=== PATIENT | female | born 1995 | race Caucasian/White ===

== ENCOUNTER 2018-08-01 18:11 | Inpatient (IN) | payer BC ==
[2018-08-01] MEDS ORDERED: Nalbuphine 10 MG/1 ML Vial IVPUSH PRN (20:06)
[2018-08-01] MEDS ORDERED: Sodium Chloride 0.9% 10 ML Syringe FLUSH PRN (20:06)
[2018-08-01] MEDS ORDERED: Sodium Chloride 0.9% 2.5 ML Syringe FLUSH PRN (20:06)
[2018-08-01] MEDS ORDERED: Water For Irrigation,Sterile 1,000 ML Container IRR PRN (20:06)
[2018-08-01] MEDS ORDERED: Misoprostol 200 MCG Tab PO PRN (20:06)
[2018-08-01] MEDS ORDERED: Tranexamic Acid 1,000 MG in Sodium Chloride 0.9% 100 ML IV PRN (20:06)
[2018-08-01] MEDS ORDERED: Butorphanol 1 MG/ML SDV IVPUSH PRN (20:06)
[2018-08-01] MEDS ORDERED: Methylergonovine 0.2 MG/1 ML Amp IM PRN (20:06)
[2018-08-01] MEDS ORDERED: Lidocaine 1% 50 ML MDV INJECT PRN (20:06)
[2018-08-01] MEDS ORDERED: Carboprost Tromethamine 250 MCG/1 ML Amp IM PRN (20:06)
[2018-08-01] MEDS ORDERED: Oxytocin/0.9 % Sodium Chloride 30 UNIT/500 ML BAG IV SCH (20:15)
[2018-08-01] MEDS ORDERED: Ampicillin 2 GM in Sodium Chloride 0.9% 100 ML IV ONE (20:30)
[2018-08-01] MEDS: Lactated Ringers 1,000 ML IV SCH (20:41)
[2018-08-02] MEDS: Ampicillin 1 GM in Sodium Chloride 0.9% 50 ML IV SCH ×2 (00:27→04:40)
[2018-08-02] MEDS: Lactated Ringers 1,000 ML IV SCH ×2 (06:08→06:34)
--- NOTE | 2018-08-02 06:08 | PCM.LDHP ---
L&D History of Present Illness - General Date of Service: 08/02/18 Admit Problem/Dx: Patient Status Order with Admit Dx/Problem 08/01/18 18:10 Patient Status [ADT] Routine 08/01/18 19:51 Patient Status [ADT] Routine Admission Diagnosis/Problem Admission Diagnosis/Problem Source of Information: Patient History Limitations: Reports: No Limitations - History of Present Illness Improves with: Reports: None Worsens with: Reports: None Associated Symptoms: Reports: N - Related Data Allergies/Adverse Reactions: Allergies Allergy/AdvReac Type Severity Reaction Status Date / Time gluten Allergy Rash Verified 08/01/18 19:06 almonds Allergy Rash Uncoded 08/01/18 19:06 cherries Allergy Rash Uncoded 08/01/18 19:06 nuts Allergy Rash Uncoded 08/01/18 19:06 peaches Allergy Rash Uncoded 08/01/18 19:06 strawberries Allergy Rash Uncoded 08/01/18 19:06 Past Medical History - Past Health History Medical/Surgical History: Denies 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: Social & Family History - Family History Family Medical History: Noncontributory - Tobacco Use Smoking Status *Q: Never Smoker Second Hand Smoke Exposure: No - Caffeine Use Caffeine Use: Reports: None - Recreational Drug Use Recreational Drug Use: No H&P Review of Systems - Review of Systems: Review Of Systems: See Below General: Reports: No Symptoms HEENT: Reports: No Symptoms Pulmonary: Reports: No Symptoms Cardiovascular: Reports: No Symptoms Gastrointestinal: Reports: No Symptoms Genitourinary: Reports: No Symptoms Musculoskeletal: Reports: No Symptoms Skin: Reports: No Symptoms Psychiatric: Reports: No Symptoms Neurological: Reports: No Symptoms Hematologic/Lymphatic: Reports: No Symptoms Immunologic: Reports: No Symptoms L&D Exam - Exam Exam: See Below - Vital Signs Weight: 86.183 kg - OB Specific Fundal Height In cm: 38 Contraction Intensity: Mild to Moderate Movement: Active Heart Tones: Present Presentation: Breech - Cheema Score Cheema Score Cervix Position: Midposition Cheema Score Consistency: Soft Cheema Score Effacement: 51-70% Cheema Score Dilation: 1-2 cm Cheema Score Infant's Station: -3 Cheema Score Total: 6 - Exam General: Alert, Oriented HEENT: PERRLA, Conjunctiva Clear, EACs Clear, EOMI, Hearing Intact, Mucosa Moist & [place], Nares Patent, Normal Nasal Septum, Posterior Pharynx Clear, TMs Clear Neck: Supple, Trachea Midline Lungs: Clear to Auscultation, Normal Respiratory Effort Cardiovascular: Regular Rate, Regular Rhythm GI/Abdominal Exam: Normal Bowel Sounds, Soft, Non-Tender, No Organomegaly, No Distention, No Abnormal Bruit, No Mass, Pelvis Stable Rectal Exam: Normal Exam, Normal Rectal Tone Genitourinary: Normal external exam, Normal bimanual exam, Normal speculum exam Back Exam: Normal Inspection, Full Range of Motion Extremities: Normal Inspection, Normal Range of Motion, Non-Tender, No Pedal Edema, Normal Capillary Refill Skin: Warm, Dry, Intact Neurological: Cranial Nerves Intact, Reflexes Equal Bilateral Psychiatric: Alert, Normal Affect, Normal Mood - Patient Data Lab Results Last 24 hrs: Laboratory Results - last 24 hr 08/01/18 08/01/18 08/01/18 Range/Units 18:40 20:23 20:23 WBC 17.78 H (4.0-11.0) K/uL RBC 4.23 L (4.30-5.90) M/uL Hgb 11.8 L (12.0-16.0) g/dL Hct 35.7 L (36.0-46.0) % MCV 84.4 (80.0-98.0) fL MCH 27.9 (27.0-32.0) pg MCHC 33.1 (31.0-37.0) g/dL RDW Std Deviation 44.1 (28.0-62.0) fl RDW Coeff of Berta 14 (11.0-15.0) % Plt Count 298 (150-400) K/uL MPV 11.20 (7.40-12.00) fL Nucleated RBC % 0.0 /100WBC Nucleated RBCs # 0 K/uL Membrane Rupture POSITIVE Blood Type A POSITIVE Antibody Screen NEGATIVE Result Diagrams: 08/01/18 20:23 Problem List Initiated/Reviewed/Updated: Yes Orders Last 24hrs: Active Orders 24 hr Category Date Time Status Patient Status [ADT] Routine ADT 08/01/18 19:51 Active May Shower [RC] ASDIRECTED Care 08/01/18 20:07 Active Notify Provider [RC] PRN Care 08/01/18 20:07 Active Up ad Arleen [RC] ASDIRECTED Care 08/01/18 19:07 Active Vital Signs [RC] PER UNIT ROUTINE Care 08/01/18 19:07 Active OB Ltd 1 or More Fetus [US] Routine Exams 08/02/18 05:11 Taken Ampicillin 1 gm Med 08/02/18 00:30 Active Sodium Chloride 0.9% [Normal Saline] 50 ml IV Q4H Butorphanol [Stadol] Med 08/01/18 20:06 Active 1 mg IVPUSH Q1H PRN Carboprost Tromethamine [Hemabate DS] Med 08/01/18 20:06 Active 250 mcg IM ASDIRECTED PRN Lactated Ringers [Ringers, Lactated] 1,000 ml Med 08/01/18 20:15 Active IV ASDIRECTED Lidocaine 1% [Xylocaine 1%] Med 08/01/18 20:06 Active 50 ml INJECT ONETIME PRN Methylergonovine [Methergine] Med 08/01/18 20:06 Active 0.2 mg IM ASDIRECTED PRN Nalbuphine [Nubain] Med 08/01/18 20:06 Active 10 mg IVPUSH Q1H PRN Oxytocin/0.9 % Sodium Chloride [Oxytocin 30 Unit/500 ML Med 08/01/18 20:15 Active -NS] 30 unit in 500 ml IV TITRATE Sodium Chloride 0.9% [Saline Flush] Med 08/01/18 20:06 Active 10 ml FLUSH ASDIRECTED PRN Sodium Chloride 0.9% [Saline Flush] Med 08/01/18 20:06 Active 2.5 ml FLUSH ASDIRECTED PRN Tranexamic Acid [Cyklokapron] 1,000 mg Med 08/01/18 20:06 Active Sodium Chloride 0.9% [Normal Saline] 100 ml IV ONETIME Water For Irrigation,Sterile [Sterile Water for Med 08/01/18 20:06 Active Irrigation] 1,000 ml IRR ASDIRECTED PRN miSOPROStol [Cytotec] Med 08/01/18 20:06 Active 200 mcg PO ONETIME PRN Scalp Electrode [WOMSER] Per Unit Routine Oth 08/01/18 20:07 Ordered Peripheral IV Insertion Adult [OM.PC] Routine Oth 08/01/18 20:07 Ordered Resuscitation Status Routine Resus Stat 08/01/18 19:07 Ordered Medication Orders Butorphanol Tartrate (Stadol) 1 mg IVPUSH Q1H PRN PRN Reason: Pain Carboprost Tromethamine (Hemabate Ds) 250 mcg IM ASDIRECTED PRN PRN Reason: Post Hemorrhage Tranexamic Acid 1,000 mg/ (Sodium Chloride) 110 mls @ 660 mls/hr IV ONETIME PRN PRN Reason: Bleeding Lactated Ringer's (Ringers, Lactated) 1,000 mls @ 150 mls/hr IV ASDIRECTED [facility] Last Admin: 08/01/18 20:41 Dose: 150 mls/hr Oxytocin/Sodium Chloride (Oxytocin 30 Unit/500 Ml-Ns) 30 unit in 500 mls @ 500 mls/hr IV TITRATE [facility] Ampicillin Sodium 1 gm/ Sodium (Chloride) 50 mls @ 100 mls/hr IV Q4H [facility] Last Admin: 08/02/18 04:40 Dose: 100 mls/hr Infusion: 08/02/18 00:57 Dose: 100 mls/hr Admin: 08/02/18 00:27 Dose: 100 mls/hr Lidocaine HCl (Xylocaine 1%) 50 ml INJECT ONETIME PRN PRN Reason: Laceration repair Methylergonovine Maleate (Methergine) 0.2 mg IM ASDIRECTED PRN PRN Reason: Post Hemorrhage Misoprostol (Cytotec) 200 mcg PO ONETIME PRN PRN Reason: Post Hemorrhage Nalbuphine HCl (Nubain) 10 mg IVPUSH Q1H PRN PRN Reason: Pain (severe 7-10) Sodium Chloride (Saline Flush) 10 ml FLUSH ASDIRECTED PRN PRN Reason: Keep Vein Open Sodium Chloride (Saline Flush) 2.5 ml FLUSH ASDIRECTED PRN PRN Reason: Keep Vein Open Sterile Water (Sterile Water For Irrigation) 1,000 ml IRR ASDIRECTED PRN PRN Reason: delivery Assessment/Plan Comment:: Term in early labor. Breech presentation that was confermed by U/S. PT. consented for elective C/Section.
[2018-08-02] MEDS ORDERED: Citric Acid/Sodium Citrate Solution 30 ML Cup PO ONE (06:10)
[2018-08-02] MEDS ORDERED: Nalbuphine 10 MG/1 ML Vial IVPUSH PRN (06:18)
[2018-08-02] MEDS ORDERED: diphenhydrAMINE 50 MG/ML SDV IVPUSH PRN ×2 (06:18→07:27)
--- NOTE | 2018-08-02 06:18 | PCM.PREANE ---
Preanesthetic Assessment - Anesthesia/Transfusion/Family Hx Anesthesia History: Prior Anesthesia Without Reaction Transfusion History: No Prior Transfusion(s) Additional History: STAT c/s BREECH, NO PROBLEMS DURING - Review of Systems General: No Symptoms Pulmonary: No Symptoms Cardiovascular: No Symptoms Gastrointestinal: No Symptoms Neurological: No Symptoms Other: Reports: None - Physical Assessment Height: 1.68 m Weight: 86.183 kg ASA Class: 2E Mental Status: Alert & Oriented x3 Airway Class: Mallampati = 2 (small mouth) Dentition: Reports: Normal Dentition Thyro-Mental Finger Breadths: 3 Mouth Opening Finger Breadths: 3 ROM/Head Extension: Full Lungs: Clear to Auscultation, Normal Respiratory Effort - Lab Values: Laboratory Last Values WBC 17.78 K/uL (4.0-11.0) H 08/01/18 20:23 RBC 4.23 M/uL (4.30-5.90) L 08/01/18 20:23 Hgb 11.8 g/dL (12.0-16.0) L 08/01/18 20:23 Hct 35.7 % (36.0-46.0) L 08/01/18 20:23 MCV 84.4 fL (80.0-98.0) 08/01/18 20:23 MCH 27.9 pg (27.0-32.0) 08/01/18 20:23 MCHC 33.1 g/dL (31.0-37.0) 08/01/18 20:23 RDW Std Deviation 44.1 fl (28.0-62.0) 08/01/18 20:23 RDW Coeff of Berta 14 % (11.0-15.0) 08/01/18 20:23 Plt Count 298 K/uL (150-400) 08/01/18 20:23 MPV 11.20 fL (7.40-12.00) 08/01/18 20:23 Nucleated RBC % 0.0 /100WBC 08/01/18 20:23 Nucleated RBCs # 0 K/uL 08/01/18 20:23 Membrane Rupture POSITIVE 08/01/18 18:40 Blood Type A POSITIVE 08/01/18 20:23 Antibody Screen NEGATIVE 08/01/18 20:23 - Allergies Allergies/Adverse Reactions: Allergies Allergy/AdvReac Type Severity Reaction Status Date / Time gluten Allergy Rash Verified 08/01/18 19:06 almonds Allergy Rash Uncoded 08/01/18 19:06 cherries Allergy Rash Uncoded 08/01/18 19:06 nuts Allergy Rash Uncoded 08/01/18 19:06 peaches Allergy Rash Uncoded 08/01/18 19:06 strawberries Allergy Rash Uncoded 08/01/18 19:06 - Anesthesia Plan Pre-Op Medication Ordered: Antacids (bicitra) - Acknowledgements Anesthesia Type Planned: Spinal (Risks and benefits of spinal anesthetic discussed including possible conversion to general anesthesia. Patient consented. All questions answered. 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: - SUBSTANCE USE Smoking Status *Q: Never Smoker Tobacco Use Within Last Twelve Months: No Second Hand Smoke Exposure: No Recreational Drug Use History: No - CURRENT (IN HOUSE) MEDS Current Meds: Current Medications Butorphanol Tartrate (Stadol) 1 mg IVPUSH Q1H PRN PRN Reason: Pain Carboprost Tromethamine (Hemabate Ds) 250 mcg IM ASDIRECTED PRN PRN Reason: Post Hemorrhage Citric Acid/Sodium Citrate (Bicitra Solution) 30 ml PO ONETIME ONE Stop: 08/02/18 06:11 Tranexamic Acid 1,000 mg/ (Sodium Chloride) 110 mls @ 660 mls/hr IV ONETIME PRN PRN Reason: Bleeding Lactated Ringer's (Ringers, Lactated) 1,000 mls @ 150 mls/hr IV ASDIRECTED [facility] Last Admin: 08/02/18 06:08 Dose: 999 mls/hr Oxytocin/Sodium Chloride (Oxytocin 30 Unit/500 Ml-Ns) 30 unit in 500 mls @ 500 mls/hr IV TITRATE [facility] Ampicillin Sodium 1 gm/ Sodium (Chloride) 50 mls @ 100 mls/hr IV Q4H [facility] Last Admin: 08/02/18 04:40 Dose: 100 mls/hr Lidocaine HCl (Xylocaine 1%) 50 ml INJECT ONETIME PRN PRN Reason: Laceration repair Methylergonovine Maleate (Methergine) 0.2 mg IM ASDIRECTED PRN PRN Reason: Post Hemorrhage Misoprostol (Cytotec) 200 mcg PO ONETIME PRN PRN Reason: Post Hemorrhage Nalbuphine HCl (Nubain) 10 mg IVPUSH Q1H PRN PRN Reason: Pain (severe 7-10) Sodium Chloride (Saline Flush) 10 ml FLUSH ASDIRECTED PRN PRN Reason: Keep Vein Open Sodium Chloride (Saline Flush) 2.5 ml FLUSH ASDIRECTED PRN PRN Reason: Keep Vein Open Sterile Water (Sterile Water For Irrigation) 1,000 ml IRR ASDIRECTED PRN PRN Reason: delivery Discontinued Medications Ampicillin Sodium 2 gm/ Sodium (Chloride) 100 mls @ 200 mls/hr IV ONETIME ONE Stop: 08/01/18 20:59 Last Admin: 08/01/18 20:42 Dose: 200 mls/hr
[2018-08-02] MEDS ORDERED: Morphine PF 10 MG/10 ML SDV ONE (06:22)
[2018-08-02] MEDS ORDERED: Phenylephrine/Normal Saline 100 MCG/ML 10 ML Syringe ONE (06:50)
[2018-08-02] MEDS ORDERED: ceFAZolin/Dextrose,Iso-Osmotic 2 GM/50 ML Duplex Bag IV ONE (06:54)
[2018-08-02] MEDS ORDERED: Oxytocin 10 Units/1 ML SDV ONE (07:10)
[2018-08-02] MEDS ORDERED: Ondansetron 4 MG/2 ML SDV ONE (07:12)
[2018-08-02] MEDS ORDERED: Dexamethasone 4 MG/ML 5 ML MDV ONE (07:12)
[2018-08-02] MEDS ORDERED: Ketorolac 30 MG/ML SDV ONE (07:25)
[2018-08-02] MEDS ORDERED: Labetalol 100 MG/20 ML MDV ONE (07:26)
[2018-08-02] MEDS ORDERED: Ondansetron 4 MG/2 ML SDV IVPUSH PRN (07:27)
[2018-08-02] MEDS ORDERED: Bisacodyl 10 MG Supp RECTAL PRN (07:27)
[2018-08-02] MEDS ORDERED: Acetaminophen/oxyCODONE 325-5 MG Tab PO PRN ×2 (07:27)
[2018-08-02] MEDS ORDERED: Lanolin 100% Cream 7 GM Tube TOP PRN (07:27)
[2018-08-02] MEDS ORDERED: Lactated Ringers 1,000 ML IV SCH (07:30)
--- NOTE | 2018-08-02 07:31 | PCM.OPNOTE ---
- General Post-Op/Procedure Note Date of Surgery/Procedure: 08/02/18 Operative Procedure(s): Primary C/section. Pre Op Diagnosis: IUP 38+ breech presentation. Post-Op Diagnosis: Same Anesthesia Technique: Spinal Primary Surgeon: Iam Suresh EBL in mLs: 600 Complications: None Condition: Good
[2018-08-02] MEDS ORDERED: Meperidine PF 25 MG/ML Syringe ONE (07:44)
[2018-08-02] MEDS ORDERED: Octyl 2-Cyanoacrylate 1 Tube ONE (07:53)
[2018-08-02] MEDS ORDERED: Meperidine PF 50 MG/ML Syringe IVPUSH ONE (08:00)
--- NOTE | 2018-08-02 08:12 | PCM.POSTAN ---
POST ANESTHESIA ASSESSMENT - MENTAL STATUS Mental Status: Alert, Oriented - RESPIRATORY Respiratory Status: Respiratory Rate WNL - CARDIOVASCULAR CV Status: Pulse Rate WNL - GASTROINTESTINAL GI Status: No Symptoms - PAIN Pain Score: 1 - POST OP HYDRATION Hydration Status: Adequate & Stable - OBSERVATIONS Free Text/Narrative:: The patient tolerated the procedure well. There were no apparent anesthetic complications at this time. Discharge to floor per criteria.
--- NOTE | 2018-08-02 13:08 | OR ---
SURGEON: Iam Suresh MD DATE OF PROCEDURE: 08/02/2018 PREOPERATIVE DIAGNOSIS: Intrauterine at 38 weeks plus, spontaneous rupture of the membrane, breech presentation. POSTOPERATIVE DIAGNOSIS: Intrauterine at 38 weeks plus, spontaneous rupture of the membrane, breech presentation. OPERATION PERFORMED: Primary low-transverse section. WEB SEARCH EVALUATOR: OR Neelima. ANESTHESIA: Spinal, Dr. Segal. ESTIMATED BLOOD LOSS: 600 mL. COMPLICATIONS: None. FINDINGS: Female fetus, scores reported to be 9 and 9 and weight is not available. INDICATION: This patient is 22. This is her first . She is followed in our practice primarily by our nurse residency director. She is GBS positive. She had a spontaneous rupture of the membrane and that was confirmed and she was admitted to Labor and Delivery. The patient has a plan and declined initially pelvic examination; however, later on nurse examined her and found out that she is dilated to 1 cm and she is 50% out of pelvis and she is breech that was confirmed later on by official ultrasound. The patient counseled adequately and explained her option and consented for primary low-transverse section. DESCRIPTION OF PROCEDURE: The patient was brought to the OR, properly identified and after adequate level of spinal anesthesia with a Campoverde catheter in the bladder, the patient prepped and draped in sterile fashion as usual. Low transverse Pfannenstiel skin incision was done. The Nathaly fascia and rectus fascia were opened in direction of the incision. The 2 recti muscles were and peritoneal cavity was entered. Bladder flap was raised in the usual manner pushing the bladder away from the lower uterine segment. Low transverse uterine incision was done and extended manually with the hand. Fetus was delivered. Handed to the narcotics investigator who was present at the time of the delivery. The scores were reported to be 9 and 9. The placenta delivered spontaneous, complete, and intact, and repair of the lower uterine segment was done with 2-0 Vicryl continuous interlocking in 2 layers. Reperitonealization was done with 3-0 Vicryl continuous and then the peritoneal cavity evacuated completely from all blood and blood clot and closed with 3-0 Vicryl continuous. The rectus fascia was closed with #1 PDS, double strand, continuous. The Nathaly fascia with 3-0 Vicryl continuous. The skin closed with skin clips, Insorb, and Dermabond. Instrument and sponge counts were correct. The patient tolerated the procedure well, went to recovery room in stable general condition. FAVIAN PAYAN /[id number]
[2018-08-02] MEDS: Ketorolac 30 MG/ML SDV IVPUSH SCH ×2 (13:35→21:26)
--- NOTE | 2018-08-02 13:57 | US ---
EXAM DATE: 08/02/18 PATIENT'S AGE: 22 Patient: MARY CARMEN CASTLEUG Facility: [place], [place] Site Site : 1996 Study: US OB Pelvis [id number]/8/[id number] 6:04:46 AM Ordering Physician: ALPESH Final Report: HISTORY: Right foot membranes. Assess position. TECHNIQUE: Limited transabdominal obstetric ultrasound. COMPARISON: None. FINDINGS: Single live intrauterine gestation. cardiac activity is present with heart rate 145 beats per minute. position is breech. Placenta is fundal. IMPRESSION: Single live intrauterine gestation in breech position. Dictated by Wilber Han MD @ Aug 02 2018 6:29AM (Electronic Signature) Report Signed by Proxy. WANDA
[2018-08-02] MEDS: Docusate Sodium 100 MG Cap PO SCH (21:25)
[2018-08-03] MEDS: Ketorolac 30 MG/ML SDV IVPUSH SCH ×3 (03:30→09:59)
--- NOTE | 2018-08-03 06:51 | PCM48HPAN ---
Post Anesthesia Note - EVALUATION WITHIN 48HRS OF ANESTHETIC Vital Signs in Normal Range: Yes Patient Participated in Evaluation: Yes Respiratory Function Stable: Yes Airway Patent: Yes Cardiovascular Function Stable: Yes Hydration Status Stable: Yes Pain Control Satisfactory: Yes Nausea and Vomiting Control Satisfactory: Yes Mental Status Recovered: Yes Resp Rate: 16
--- NOTE | 2018-08-03 07:46 | PCM.PNPP ---
- General Info Date of Service: 08/03/18 Subjective Update: The patient is a 22 year old female, now , post day 1 from C/S due to breech position. She reports she is feeling good, she denies any pain. Her catheter was discontinued this morning but patient had not tried to urinate or have a bowel movement yet. She has be ambulating without difficulty. She gave to a baby girl who she reports is doing well. She is breast feeding. Functional Status: Reports: Pain Controlled - Review of Systems General: Reports: No Symptoms HEENT: Reports: No Symptoms Pulmonary: Reports: No Symptoms Cardiovascular: Reports: No Symptoms Gastrointestinal: Reports: No Symptoms Genitourinary: Reports: No Symptoms Musculoskeletal: Reports: No Symptoms Skin: Reports: No Symptoms Neurological: Reports: No Symptoms Psychiatric: Reports: No Symptoms - General Info Date of Service: 08/03/18 - Patient Data Vital Signs - Most Recent: Last Vital Signs Temp 97.5 F 08/03/18 04:00 Pulse 74 08/03/18 04:00 Resp 16 08/03/18 06:50 BP 106/61 08/03/18 04:00 Pulse Ox 96 08/03/18 06:00 Weight - Most Recent: 86.183 kg I&O - Last 24 Hours: Intake & Output 08/02/18 08/03/18 08/03/18 22:59 06:59 14:59 Intake Total 1000 1500 Output Total 1700 2800 Balance -700 -1300 Lab Results - Last 24 Hours: Laboratory Results - last 24 hr 08/03/18 Range/Units 06:07 Hgb 10.7 L (12.0-16.0) g/dL Hct 32.1 L (36.0-46.0) % Med Orders - Current: Current Medications Bisacodyl (Dulcolax) 10 mg RECTAL ONETIME PRN PRN Reason: Constipation Butorphanol Tartrate (Stadol) 1 mg IVPUSH Q1H PRN PRN Reason: Pain Carboprost Tromethamine (Hemabate Ds) 250 mcg IM ASDIRECTED PRN PRN Reason: Post Hemorrhage Diphenhydramine HCl (Benadryl) 25 mg IVPUSH Q6H PRN PRN Reason: Itching or Nausea Docusate Sodium (Colace) 100 mg PO BID [facility] Last Admin: 08/02/18 21:25 Dose: 100 mg Emollient Ointment (Lansinoh Hpa) 0 gm TOP ASDIRECTED PRN PRN Reason: Sore Nipples Tranexamic Acid 1,000 mg/ (Sodium Chloride) 110 mls @ 660 mls/hr IV ONETIME PRN PRN Reason: Bleeding Lactated Ringer's (Ringers, Lactated) 1,000 mls @ 150 mls/hr IV ASDIRECTED [facility] Last Admin: 08/02/18 06:34 Dose: 999 mls/hr Oxytocin/Sodium Chloride (Oxytocin 30 Unit/500 Ml-Ns) 30 unit in 500 mls @ 500 mls/hr IV TITRATE [facility] Ampicillin Sodium 1 gm/ Sodium (Chloride) 50 mls @ 100 mls/hr IV Q4H [facility] Last Admin: 08/02/18 04:40 Dose: 100 mls/hr Lactated Ringer's (Ringers, Lactated) 1,000 mls @ 125 mls/hr IV ASDIRECTED [facility] Ibuprofen (Motrin) 800 mg PO Q8H PRN PRN Reason: mild pain or fever Lidocaine HCl (Xylocaine 1%) 50 ml INJECT ONETIME PRN PRN Reason: Laceration repair Methylergonovine Maleate (Methergine) 0.2 mg IM ASDIRECTED PRN PRN Reason: Post Hemorrhage Misoprostol (Cytotec) 200 mcg PO ONETIME PRN PRN Reason: Post Hemorrhage Nalbuphine HCl (Nubain) 10 mg IVPUSH Q1H PRN PRN Reason: Pain (severe 7-10) Ondansetron HCl (Zofran) 4 mg IVPUSH Q4H PRN PRN Reason: Nausea/Vomiting Oxycodone/Acetaminophen (Percocet 325-5 Mg) 1 tab PO Q4H PRN PRN Reason: Pain (moderate 4-6) Oxycodone/Acetaminophen (Percocet 325-5 Mg) 2 tab PO Q4H PRN PRN Reason: Pain (moderate 4-6) Sodium Chloride (Saline Flush) 10 ml FLUSH ASDIRECTED PRN PRN Reason: Keep Vein Open Sodium Chloride (Saline Flush) 2.5 ml FLUSH ASDIRECTED PRN PRN Reason: Keep Vein Open Sterile Water (Sterile Water For Irrigation) 1,000 ml IRR ASDIRECTED PRN PRN Reason: delivery Discontinued Medications Cefazolin Sodium/Dextrose (Ancef) Confirm Administered Dose 2 gm IV .STK-MED ONE Stop: 08/02/18 06:55 Citric Acid/Sodium Citrate (Bicitra Solution) 30 ml PO ONETIME ONE Stop: 08/02/18 06:11 Last Admin: 08/02/18 06:28 Dose: 30 ml Dexamethasone (Dexamethasone) Confirm Administered Dose 20 mg .ROUTE .STK-MED ONE Stop: 08/02/18 07:13 Diphenhydramine HCl (Benadryl) 25 mg IVPUSH Q4H PRN PRN Reason: Itching Stop: 08/03/18 06:19 Ampicillin Sodium 2 gm/ Sodium (Chloride) 100 mls @ 200 mls/hr IV ONETIME ONE Stop: 08/01/18 20:59 Last Admin: 08/01/18 20:42 Dose: 200 mls/hr Acetaminophen (Ofirmev) Confirm Administered Dose 100 mls @ as directed IV .STK- MED ONE Stop: 08/02/18 07:02 Ketorolac Tromethamine (Toradol) Confirm Administered Dose 30 mg .ROUTE .STK- MED ONE Stop: 08/02/18 07:26 Ketorolac Tromethamine (Toradol) 30 mg IVPUSH Q6H [facility] Stop: 08/03/18 07:31 Last Admin: 08/02/18 13:35 Dose: 30 mg Ketorolac Tromethamine (Toradol) 30 mg IVPUSH Q6H [facility] Stop: 08/03/18 07:31 Last Admin: 08/03/18 03:30 Dose: 30 mg Labetalol HCl (Normodyne) Confirm Administered Dose 100 mg .ROUTE .STK-MED ONE Stop: 08/02/18 07:27 Meperidine HCl (Demerol) Confirm Administered Dose 25 mg .ROUTE .STK-MED ONE Stop: 08/02/18 07:45 Last Admin: 08/02/18 08:03 Dose: 12.5 mg Meperidine HCl (Demerol) 12.5 mg IVPUSH ONETIME ONE Stop: 08/02/18 08:01 Morphine Sulfate (Duramorph Pf) Confirm Administered Dose 10 mg .ROUTE .STK-MED ONE Stop: 08/02/18 06:23 Nalbuphine HCl (Nubain) 5 mg IVPUSH Q3H PRN PRN Reason: Pruritis Stop: 08/03/18 06:19 Octyl Cyanoacrylate (Dermabond Advance) Confirm Administered Dose 1 applic .ROUTE .STK-MED ONE Stop: 08/02/18 07:54 Ondansetron HCl (Zofran) Confirm Administered Dose 4 mg .ROUTE .STK-MED ONE Stop: 08/02/18 07:13 Oxytocin (Pitocin) Confirm Administered Dose 20 unit .ROUTE .STK-MED ONE Stop: 08/02/18 07:11 Phenylephrine HCl (Phenylephrine In Ns 100 Mcg/Ml) Confirm Administered Dose 1 mg .ROUTE .STK-MED ONE Stop: 08/02/18 06:51 - Interaction Disposition, : to Nursery Support Person: , Sister - Recovery Exam Fundal Tone: Firm Fundal Level: At Umbilicus Fundal Placement: Midline Lochia Amount: Scant Lochia Color: Rubra/Red Perineum Description: Intact, Minimal Bruising/Swelling Bladder Status: Nonpalpable - Exam General: Alert, Oriented, Cooperative Neck: Supple Lungs: Clear to Auscultation, Normal Respiratory Effort Cardiovascular: Regular Rate, Regular Rhythm GI/Abdominal Exam: Normal Bowel Sounds, Soft Extremities: Normal Inspection, No Pedal Edema Skin: Warm, Dry Neurological: No New Focal Deficit Psy/Mental Status: Alert, Normal Affect, Normal Mood - Problem List Review Problem List Initiated/Reviewed/Updated: Yes - Plan Plan:: 22 year old female, , post day 1 from C/S due to breech position. Mother and baby doing well. Continue routine post care.
[2018-08-03] MEDS: Docusate Sodium 100 MG Cap PO SCH ×3 (09:15→23:20)
[2018-08-03] MEDS: Ampicillin 1 GM in Sodium Chloride 0.9% 50 ML IV SCH ×3 (09:43→09:59)
[2018-08-03] MEDS: Ibuprofen 800 MG Tab PO PRN (17:19)
[2018-08-04] MEDS: Ibuprofen 800 MG Tab PO PRN (01:17)
[2018-08-04] MEDS ORDERED: Ibuprofen 600 MG Tab PO PRN (06:58)
--- NOTE | 2018-08-04 08:03 | PCM.DCSUM1 ---
Discharge Summary - Hospital Course Diagnosis: Stroke: No - Discharge Data Discharge Date: 08/04/18 Discharge Disposition: Home, Self-Care 01 Condition: Good - Patient Summary/Data Operative Procedure(s) Performed: Primary C/section. - Patient Instructions Diet: Usual Diet as Tolerated Activity: As Tolerated Driving: Do Not Drive Showering/Bathing: May Shower Wound/Incision Care: Keep Operative Site/Wound Site Clean and Dry Notify Provider of: Fever, Increased Pain, Swelling and Redness, Nausea and/or Vomiting - Discharge Plan Referrals: [facility] [Outside] Iam Suresh MD [Physician] - 08/15/18 1:30 pm Karen Navas CNM [Primary Care Provider] - 09/21/18 1:30 pm - Discharge Summary/Plan Comment DC Time >30 min.: Yes - General Info Date of Service: 08/04/18 - Patient Data Vitals - Most Recent: Last Vital Signs Temp 36.3 C 08/04/18 04:05 Pulse 80 08/04/18 04:05 Resp 16 08/04/18 04:05 BP 105/68 08/04/18 04:05 Pulse Ox 96 08/04/18 04:05 Weight - Most Recent: 86.183 kg Med Orders - Current: Current Medications Bisacodyl (Dulcolax) 10 mg RECTAL ONETIME PRN PRN Reason: Constipation Butorphanol Tartrate (Stadol) 1 mg IVPUSH Q1H PRN PRN Reason: Pain Carboprost Tromethamine (Hemabate Ds) 250 mcg IM ASDIRECTED PRN PRN Reason: Post Hemorrhage Diphenhydramine HCl (Benadryl) 25 mg IVPUSH Q6H PRN PRN Reason: Itching or Nausea Docusate Sodium (Colace) 100 mg PO BID [facility] Last Admin: 08/03/18 23:20 Dose: 100 mg Emollient Ointment (Lansinoh Hpa) 0 gm TOP ASDIRECTED PRN PRN Reason: Sore Nipples Tranexamic Acid 1,000 mg/ (Sodium Chloride) 110 mls @ 660 mls/hr IV ONETIME PRN PRN Reason: Bleeding Lactated Ringer's (Ringers, Lactated) 1,000 mls @ 150 mls/hr IV ASDIRECTED [facility] Last Admin: 08/02/18 06:34 Dose: 999 mls/hr Oxytocin/Sodium Chloride (Oxytocin 30 Unit/500 Ml-Ns) 30 unit in 500 mls @ 500 mls/hr IV TITRATE [facility] Lactated Ringer's (Ringers, Lactated) 1,000 mls @ 125 mls/hr IV ASDIRECTED [facility] Ibuprofen (Motrin) 600 mg PO Q6H PRN PRN Reason: Pain Last Admin: 08/04/18 07:24 Dose: 600 mg Lidocaine HCl (Xylocaine 1%) 50 ml INJECT ONETIME PRN PRN Reason: Laceration repair Methylergonovine Maleate (Methergine) 0.2 mg IM ASDIRECTED PRN PRN Reason: Post Hemorrhage Misoprostol (Cytotec) 200 mcg PO ONETIME PRN PRN Reason: Post Hemorrhage Nalbuphine HCl (Nubain) 10 mg IVPUSH Q1H PRN PRN Reason: Pain (severe 7-10) Ondansetron HCl (Zofran) 4 mg IVPUSH Q4H PRN PRN Reason: Nausea/Vomiting Oxycodone/Acetaminophen (Percocet 325-5 Mg) 1 tab PO Q4H PRN PRN Reason: Pain (moderate 4-6) Oxycodone/Acetaminophen (Percocet 325-5 Mg) 2 tab PO Q4H PRN PRN Reason: Pain (moderate 4-6) Sodium Chloride (Saline Flush) 10 ml FLUSH ASDIRECTED PRN PRN Reason: Keep Vein Open Sodium Chloride (Saline Flush) 2.5 ml FLUSH ASDIRECTED PRN PRN Reason: Keep Vein Open Sterile Water (Sterile Water For Irrigation) 1,000 ml IRR ASDIRECTED PRN PRN Reason: delivery Discontinued Medications Cefazolin Sodium/Dextrose (Ancef) Confirm Administered Dose 2 gm IV .STK-MED ONE Stop: 08/02/18 06:55 Citric Acid/Sodium Citrate (Bicitra Solution) 30 ml PO ONETIME ONE Stop: 08/02/18 06:11 Last Admin: 08/02/18 06:28 Dose: 30 ml Dexamethasone (Dexamethasone) Confirm Administered Dose 20 mg .ROUTE .STK-MED ONE Stop: 08/02/18 07:13 Diphenhydramine HCl (Benadryl) 25 mg IVPUSH Q4H PRN PRN Reason: Itching Stop: 08/03/18 06:19 Ampicillin Sodium 2 gm/ Sodium (Chloride) 100 mls @ 200 mls/hr IV ONETIME ONE Stop: 08/01/18 20:59 Last Admin: 08/01/18 20:42 Dose: 200 mls/hr Ampicillin Sodium 1 gm/ Sodium (Chloride) 50 mls @ 100 mls/hr IV Q4H ARMANI Last Admin: 08/03/18 09:59 Dose: Not Given Acetaminophen (Ofirmev) Confirm Administered Dose 100 mls @ as directed IV .STK- MED ONE Stop: 08/02/18 07:02 Ibuprofen (Motrin) 800 mg PO Q8H PRN PRN Reason: mild pain or fever Last Admin: 08/04/18 01:17 Dose: 800 mg Ketorolac Tromethamine (Toradol) Confirm Administered Dose 30 mg .ROUTE .STK- MED ONE Stop: 08/02/18 07:26 Ketorolac Tromethamine (Toradol) 30 mg IVPUSH Q6H [facility] Stop: 08/03/18 07:31 Last Admin: 08/03/18 09:59 Dose: Not Given Ketorolac Tromethamine (Toradol) 30 mg IVPUSH Q6H [facility] Stop: 08/03/18 07:31 Last Admin: 08/03/18 07:41 Dose: 30 mg Labetalol HCl (Normodyne) Confirm Administered Dose 100 mg .ROUTE .STK-MED ONE Stop: 08/02/18 07:27 Meperidine HCl (Demerol) Confirm Administered Dose 25 mg .ROUTE .STK-MED ONE Stop: 08/02/18 07:45 Last Admin: 08/02/18 08:03 Dose: 12.5 mg Meperidine HCl (Demerol) 12.5 mg IVPUSH ONETIME ONE Stop: 08/02/18 08:01 Last Admin: 08/03/18 10:00 Dose: Not Given Morphine Sulfate (Duramorph Pf) Confirm Administered Dose 10 mg .ROUTE .STK-MED ONE Stop: 08/02/18 06:23 Nalbuphine HCl (Nubain) 5 mg IVPUSH Q3H PRN PRN Reason: Pruritis Stop: 08/03/18 06:19 Octyl Cyanoacrylate (Dermabond Advance) Confirm Administered Dose 1 applic .ROUTE .STK-Education Everytime ONE Stop: 08/02/18 07:54 Ondansetron HCl (Zofran) Confirm Administered Dose 4 mg .ROUTE .Tivra-MED ONE Stop: 08/02/18 07:13 Oxytocin (Pitocin) Confirm Administered Dose 20 unit .ROUTE .STJamdat Mobile-MED ONE Stop: 08/02/18 07:11 Phenylephrine HCl (Phenylephrine In Ns 100 Mcg/Ml) Confirm Administered Dose 1 mg .ROUTE .Tivra-Education Everytime ONE Stop: 08/02/18 06:51 - Exam General: Reports: Alert, Oriented HEENT: Reports: Pupils Equal, Pupils Reactive, EOMI, Mucous Membr. Moist/[place] Neck: Reports: Supple Lungs: Reports: Clear to Auscultation, Normal Respiratory Effort Cardiovascular: Reports: Regular Rate, Regular Rhythm GI/Abdominal Exam: Normal Bowel Sounds, Soft, Non-Tender, No Organomegaly, No Distention, No Abnormal Bruit, No Mass, Pelvis Stable (Female) Exam: Normal External Exam, Normal Speculum Exam, Normal Bimanual Exam Rectal (Female) Exam: Normal Exam, Normal Rectal Tone Back Exam: Reports: Normal Inspection, Full Range of Motion Extremities: Normal Inspection, Normal Range of Motion, Non-Tender, No Pedal Edema, Normal Capillary Refill Skin: Reports: Warm, Dry, Intact Wound/Incisions: Reports: Healing Well Neurological: Reports: No New Focal Deficit Psy/Mental Status: Reports: Alert, Normal Affect, Normal Mood
== END 2018-08-04 10:45 | disposition home or self-care (01) | DRG 540 ==
LOC: MW.OBCHECK 18:11 → MW.OB 18:58 → MW.OBCHECK 19:51 → OBSVTOIN 08-02 07:08 → MW.OB 08-02 09:23
PROVIDERS: ADMIT Obstetrics & Gynecology; ATTEND Obstetrics & Gynecology
PROC: 10D00Z1 Extraction of Products of Conception, Low, Open Approach (ICD-10-PCS; principal; 2018-08-02)
DX: O32.1XX0 Maternal care for breech presentation, not applicable or unspecified (principal); Z3A.38 38 weeks gestation of pregnancy; O99.824 Streptococcus B carrier state complicating childbirth; Z37.0 Single live birth
CPT/HCPCS: 36415; 59025; 76815; 76815-26; 84112; 85014; 85018; 85027; 86850; 86900; 86901; A9270-GY; J0131; J0290; J0690; J1100; J1885; J2175; J2270; J2370; J2405; J2590; J3490; J7030; J7050; J7120

== ENCOUNTER 2018-12-13 00:30 | Emergency (ER) | payer BC ==
--- NOTE | 2018-12-13 00:55 | EDM.PDOC ---
ED HPI GENERAL MEDICAL PROBLEM - General Chief Complaint: Flank Pain Stated Complaint: POSSIBLE UTI Time Seen by Provider: 12/13/18 00:54 - History of Present Illness INITIAL COMMENTS - FREE TEXT/NARRATIVE: HISTORY AND PHYSICAL: HISTORY AND PHYSICAL: History of present illness: Patient 23-year-old white female presents with a concern of increased frequency and discomfort with urination she denies fever chills nausea vomiting or other complaints she is currently breast-feeding. Review of systems: As per history of present illness and below otherwise all systems reviewed and negative. Past medical history: As per history of present illness and as reviewed below otherwise noncontributory. Surgical history: As per history of present illness and as reviewed below otherwise noncontributory. Social history: No reported history of drug or alcohol abuse. Family history: As per history of present illness and as reviewed below otherwise noncontributory. Physical exam: HEENT: Atraumatic, normocephalic, pupils reactive, negative for conjunctival pallor or scleral icterus, mucous membranes moist, throat clear, neck supple, nontender, trachea midline. Lungs: Clear to auscultation, breath sounds equal bilaterally, chest nontender. Heart: S1S2, regular, negative for clicks, rubs, or JVD. Abdomen: Soft, nondistended, nontender. Negative for masses or hepatosplenomegaly. Negative for costovertebral tenderness. Pelvis: Stable nontender. Genitourinary: Deferred. Rectal: Deferred. Extremities: Atraumatic, negative for cords or calf pain. Neurovascular unremarkable. Neuro: Awake, alert, oriented. Cranial nerves II through XII unremarkable. Cerebellum unremarkable. Motor and sensory unremarkable throughout. Exam nonfocal. Diagnostics: UA Therapeutics: None Impression: #1 urinary tract infection Definitive disposition and diagnosis as appropriate pending reevaluation and review of above. left flank Pain Score (Numeric/FACES): 4 - Related Data Allergies Allergy/AdvReac Type Severity Reaction Status Date / Time gluten Allergy Rash Verified 12/13/18 00:54 almonds Allergy Rash Uncoded 12/13/18 00:54 cherries Allergy Rash Uncoded 12/13/18 00:54 nuts Allergy Rash Uncoded 12/13/18 00:54 peaches Allergy Rash Uncoded 12/13/18 00:54 strawberries Allergy Rash Uncoded 12/13/18 00:54 Home Meds: Home Meds . 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 ED EXAM, GENERAL - Physical Exam Exam: See Below (See dictation) Course - Vital Signs Last Recorded V/S: Last Vital Signs Temp 36.1 C 12/13/18 00:30 Pulse 78 12/13/18 00:30 Resp 18 12/13/18 00:30 BP 122/67 12/13/18 00:30 Pulse Ox 98 12/13/18 00:30 Departure - Departure Time of Disposition: 00:54 Disposition: Home, Self-Care 01 Condition: Good Clinical Impression: UTI, Urinary tract infectious disease - Discharge Information Referrals: PCP,None [Primary Care Provider] - Additional Instructions: The following information is given to patients seen in the emergency department who are being discharged to home. This information is to outline your options for follow-up care. We provide all patients seen in our emergency department with a follow-up referral. The need for follow-up, as well as the timing and circumstances, are variable depending upon the specifics of your emergency department visit. If you don't have a primary care physician on staff, we will provide you with a referral. We always advise you to contact your personal physician following an emergency department visit to inform them of the circumstance of the visit and for follow-up with them and/or the need for any referrals to a consulting specialist. The emergency department will also refer you to a specialist when appropriate. This referral assures that you have the opportunity for followup care with a specialist. All of these measure are taken in an effort to provide you with optimal care, which includes your followup. Under all circumstances we always encourage you to contact your private physician who remains a resource for coordinating your care. When calling for followup care, please make the office aware that this follow-up is from your recent emergency room visit. If for any reason you are refused follow-up, please contact the [facility] emergency department at and asked to speak to the emergency department charge nurse. Keflex as prescribed push fluids follow-up primary medical doctor return as needed as discussed
== END 2018-12-13 01:35 | disposition home or self-care (01) ==
LOC: MW.ED 00:30
DX: N39.0 Urinary tract infection, site not specified (principal); Z91.018 Allergy to other foods
CPT/HCPCS: 81001; 81025; 87086; 87088; 87186; 99284

== ENCOUNTER 2020-02-02 09:54 | Emergency (ER) | payer BC ==
--- NOTE | 2020-02-02 10:37 | EDM.PDOC ---
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 Patient tested positive at home hCG qualitative test 5 days earlier. LMP: 12-30-2019 Noticed however 3 days ago bleeding with some blood clots; however this is different from her previous miscarriage. This morning patient also continued to have small minimal bleeding but also complaining of abdominal cramping. Tested positive today on her home test. Patient denies any fevers, chills, body aches, UTI symptoms including dysuria, flank pain, suprapubic pain. Does endorse some mild mucus discharge; denies other acute symptoms. Denies fevers, chills, body aches, chest pain, palpitation, shortness of breath. Patient does not use any prescription medications. Uses [id number] Zyrtec for allergies (TristinjvCassiereyna) - Related Data Allergies Allergy/AdvReac Type Severity Reaction Status Date / Time gluten Allergy Rash Verified 02/02/20 10:19 almonds Allergy Rash Uncoded 02/02/20 10:19 cherries Allergy Rash Uncoded 02/02/20 10:19 nuts Allergy Rash Uncoded 02/02/20 10:19 peaches Allergy Rash Uncoded 02/02/20 10:19 strawberries Allergy Rash Uncoded 02/02/20 10:19 Home Meds: Home Meds . 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: - Infectious Disease History Infectious Disease History: Reports: None - Past Surgical History Female Surgical History: Reports: Section <TristinjvCassiereyna - Last Filed: 02/02/20 11:34> Social & Family History - Family History Family Medical History: Noncontributory - Tobacco Use Smoking Status *Q: Never Smoker - Caffeine Use Caffeine Use: Reports: None - Recreational Drug Use Recreational Drug Use: No <William Madison - Last Filed: 02/02/20 11:34> ED ROS GENERAL - Review of Systems Review Of Systems: See Below Constitutional: Reports: No Symptoms HEENT: Reports: No Symptoms Respiratory: Reports: No Symptoms Cardiovascular: Reports: No Symptoms GI/Abdominal: Denies: Abdominal Pain, Constipation, Diarrhea, Decreased Appetite : Reports: Other (+vaginal bleeding). Denies: Discharge, Dysuria, Flank Pain, Frequency, Pain, Urgency Musculoskeletal: Reports: No Symptoms Neurological: Reports: No Symptoms Psychiatric: Reports: No Symptoms <William Madison - Last Filed: 02/02/20 11:34> ED EXAM - Physical Exam Exam: See Below Exam Limited By: No Limitations General Appearance: Alert, No Apparent Distress Ears: Normal External Exam Nose: Normal Inspection Throat/Mouth: Normal Oropharynx Head: Atraumatic, Normocephalic Neck: Supple, Non-Tender Respiratory/Chest: No Respiratory Distress, Lungs Clear, Normal Breath Sounds Cardiovascular: Normal Peripheral Pulses, Regular Rate, Rhythm, No Edema (Female) Exam: Other (pelvic exam: cervical os closed; no POC at cervical os, non-tender, blood noted in vaginal vault; no tenderness, masses or foul odor apprecaited. no other obvious lesions present either...plaster lather: Silas BENITO present in room ) Back Exam: Full Range of Motion Extremities: Normal Range of Motion Neurological: Alert, Oriented Psychiatric: Normal Affect, Normal Mood Skin Exam: Warm, Dry <William Madison - Last Filed: 02/02/20 11:34> Course <William Madison - Last Filed: 02/02/20 11:34> <Adolph Moncada - Last Filed: 02/02/20 12:35> - Vital Signs Text/Narrative:: CBC/CMP : no acute pathologies appreciated HCG quant<1 UA + for blood; blood however noted on vaginal exam; pt does not endorse dysuria, or classic UTI symptoms (William Madison) Results are negative patient's abdomen is soft and nontender the hCG quant is less than 1 this would indicate that she either was not or she has completed a miscarriage she will be referred back to OB discharge from the emergency department at this time. (Adolph Moncada) Last Recorded V/S: Last Vital Signs Temp 36.2 C 02/02/20 10:20 Pulse 85 02/02/20 10:20 Resp 18 02/02/20 10:20 BP 137/66 02/02/20 10:20 Pulse Ox 99 02/02/20 10:20 - Orders/Labs/Meds Orders: Active Orders 24 hr Category Date Time Status CULTURE URINE [RM] Stat Lab 02/02/20 11:06 Received Labs: Laboratory Tests 02/02/20 02/02/20 02/02/20 Range/Units 10:36 10:36 10:36 WBC 8.14 (4.0-11.0) K/uL RBC 4.80 (4.30-5.90) M/uL Hgb 13.5 (12.0-16.0) g/dL Hct 41.2 (36.0-46.0) % MCV 85.8 (80.0-98.0) fL MCH 28.1 (27.0-32.0) pg MCHC 32.8 (31.0-37.0) g/dL RDW Std Deviation 43.1 (28.0-62.0) fl RDW Coeff of Berta 14 (11.0-15.0) % Plt Count 359 (150-400) K/uL MPV 10.40 (7.40-12.00) fL Neut % (Auto) 64.7 (48.0-80.0) % Lymph % (Auto) 24.3 (16.0-40.0) % Ransom % (Auto) 9.1 (0.0-15.0) % Eos % (Auto) 1.8 (0.0-7.0) % Baso % (Auto) 0.1 (0.0-1.5) % Neut # (Auto) 5.3 (1.4-5.7) K/uL Lymph # (Auto) 2.0 (0.6-2.4) K/uL Ransom # (Auto) 0.7 (0.0-0.8) K/uL Eos # (Auto) 0.2 (0.0-0.7) K/uL Baso # (Auto) 0.0 (0.0-0.1) K/uL Nucleated RBC % 0.0 /100WBC Nucleated RBCs # 0 K/uL Sodium 138 (136-145) mmol/L Potassium 4.0 (3.5-5.1) mmol/L Chloride 101 (98-107) mmol/L Carbon Dioxide 27.0 (21.0-32.0) mmol/L BUN 12 (7.0-18.0) mg/dL Creatinine 0.9 (0.6-1.0) mg/dL Est Cr Clr Drug Dosing 91.01 mL/min Estimated GFR (MDRD) > 60.0 ml/min Glucose 105 (74-106) mg/dL Calcium 9.4 (8.5-10.1) mg/dL Total Bilirubin 0.5 (0.2-1.0) mg/dL AST 23 (15-37) IU/L ALT 26 (14-63) IU/L Alkaline Phosphatase 89 (46-116) U/L Total Protein 7.9 (6.4-8.2) g/dL Albumin 4.3 (3.4-5.0) g/dL Globulin 3.6 (2.6-4.0) g/dL Albumin/Globulin Ratio 1.2 (0.9-1.6) HCG, Quant < 1.0 mIU/mL Urine Color Urine Appearance Urine pH (5.0-8.0) Ur Specific [place] (1.001-1.035) Urine Protein (NEGATIVE) mg/dL Urine Glucose (UA) (NEGATIVE) mg/dL Urine Ketones (NEGATIVE) mg/dL Urine Occult Blood (NEGATIVE) Urine Nitrite (NEGATIVE) Urine Bilirubin (NEGATIVE) Urine Urobilinogen (<2.0) EU/dL Ur Leukocyte Esterase (NEGATIVE) Urine RBC (0-2/HPF) Urine WBC (0-5/HPF) Ur Epithelial Cells (NONE-FEW) Urine Bacteria (NEGATIVE) Joy species DNA (NEGATIVE) Gardnerella DNA Probe (NEGATIVE) Trichomonas DNA Probe (NEGATIVE) Blood Type A POSITIVE 02/02/20 02/02/20 Range/Units 11:05 11:06 WBC (4.0-11.0) K/uL RBC (4.30-5.90) M/uL Hgb (12.0-16.0) g/dL Hct (36.0-46.0) % MCV (80.0-98.0) fL MCH (27.0-32.0) pg MCHC (31.0-37.0) g/dL RDW Std Deviation (28.0-62.0) fl RDW Coeff of Berta (11.0-15.0) % Plt Count (150-400) K/uL MPV (7.40-12.00) fL Neut % (Auto) (48.0-80.0) % Lymph % (Auto) (16.0-40.0) % Ransom % (Auto) (0.0-15.0) % Eos % (Auto) (0.0-7.0) % Baso % (Auto) (0.0-1.5) % Neut # (Auto) (1.4-5.7) K/uL Lymph # (Auto) (0.6-2.4) K/uL Ransom # (Auto) (0.0-0.8) K/uL Eos # (Auto) (0.0-0.7) K/uL Baso # (Auto) (0.0-0.1) K/uL Nucleated RBC % /100WBC Nucleated RBCs # K/uL Sodium (136-145) mmol/L Potassium (3.5-5.1) mmol/L Chloride (98-107) mmol/L Carbon Dioxide (21.0-32.0) mmol/L BUN (7.0-18.0) mg/dL Creatinine (0.6-1.0) mg/dL Est Cr Clr Drug Dosing mL/min Estimated GFR (MDRD) ml/min Glucose (74-106) mg/dL Calcium (8.5-10.1) mg/dL Total Bilirubin (0.2-1.0) mg/dL AST (15-37) IU/L ALT (14-63) IU/L Alkaline Phosphatase (46-116) U/L Total Protein (6.4-8.2) g/dL Albumin (3.4-5.0) g/dL Globulin (2.6-4.0) g/dL Albumin/Globulin Ratio (0.9-1.6) HCG, Quant mIU/mL Urine Color YELLOW Urine Appearance CLEAR Urine pH 5.5 (5.0-8.0) Ur Specific [place] 1.015 (1.001-1.035) Urine Protein NEGATIVE (NEGATIVE) mg/dL Urine Glucose (UA) NEGATIVE (NEGATIVE) mg/dL Urine Ketones NEGATIVE (NEGATIVE) mg/dL Urine Occult Blood MODERATE H (NEGATIVE) Urine Nitrite NEGATIVE (NEGATIVE) Urine Bilirubin NEGATIVE (NEGATIVE) Urine Urobilinogen 0.2 (<2.0) EU/dL Ur Leukocyte Esterase NEGATIVE (NEGATIVE) Urine RBC 1-2 (0-2/HPF) Urine WBC 0-1 (0-5/HPF) Ur Epithelial Cells OCCASIONAL (NONE-FEW) Urine Bacteria RARE (NEGATIVE) Joy species DNA NEGATIVE (NEGATIVE) Gardnerella DNA Probe NEGATIVE (NEGATIVE) Trichomonas DNA Probe NEGATIVE (NEGATIVE) Blood Type Departure <William Madison - Last Filed: 02/02/20 11:34> - Departure Time of Disposition: 12:34 Condition: Good - Discharge Information *PRESCRIPTION DRUG MONITORING PROGRAM REVIEWED*: Not Applicable *COPY OF PRESCRIPTION DRUG MONITORING REPORT IN PATIENT JING: Not Applicable <Adolph Moncada - Last Filed: 02/02/20 12:35> - Departure Disposition: Home, Self-Care 01 Clinical Impression: Complete - Discharge Information Instructions: Miscarriage Referrals: Karen Navas CNM [Primary Care Provider] - Forms: ED Department Discharge Additional Instructions: You have an appointment at 08:45 on 02/05/[address] Kelsey at [facility]. Please arrive at least 15 minutes early for registration purposes. Sepsis Event Note (ED) - Evaluation Sepsis Screening Result: No Definite Risk <William Madison - Last Filed: 02/02/20 11:34> - Focused Exam Vital Signs: Vital Signs Temp Pulse Resp BP Pulse Ox 02/02/20 10:20 36.2 C 85 18 137/66 99
[2020-02-02 11:19] LABS: BLOOD UREA NITROGEN,BUN 12 mg/dL (7.0-18.0); CHLORIDE,CL 101 mmol/L (98-107); GLUCOSE RANDOM 105 mg/dL (74-106); SODIUM,NA 138 mmol/L (136-145)
--- NOTE | 2020-02-02 12:26 | US ---
Obstetrical ultrasound: Multiple real-time images were obtained transvaginally. Uterus is retroverted. No intrauterine gestational sac is seen. Endometrial thickness measures normal at 8 mm. Left ovary shows 2.2 cm simple cyst most likely due to dominant follicle. Other follicles are seen within the right ovary. Minimal free fluid is seen within the pelvis most likely physiologic. No adnexal abnormalities are seen. Impression: 1. No intrauterine gestational sac or adnexal abnormalities are seen. 2. Other findings as noted above believed to be normal. Note: If patient has positive test, findings could represent too early to visualize, miscarriage as well as less likely nonvisualized ectopic . Diagnostic code #3 This report was dictated in MDT
== END 2020-02-02 12:47 | disposition home or self-care (01) ==
LOC: MW.ED 09:54
DX: O03.9 Complete or unspecified spontaneous abortion without complication (principal); Z91.048 Other nonmedicinal substance allergy status; Z91.018 Allergy to other foods
CPT/HCPCS: 36415; 76801; 76801-26; 80053; 81001; 84702; 85025; 86900; 86901; 87086; 87480; 87510; 87660; 99284-25

== ENCOUNTER 2020-02-05 18:40 | Emergency (ER) | payer BC ==
[2020-02-05] MEDS ORDERED: Bacitracin Oint 1 GM U/D Packet TOP ONE (19:01)
[2020-02-05] MEDS ORDERED: Diphtheria,Pertussis(Acell),Tetanus Vaccine 0.5 ML Syringe IM ONE (19:01)
--- NOTE | 2020-02-05 19:07 | EDM.PDOC ---
ED HPI GENERAL MEDICAL PROBLEM - General Chief Complaint: Laceration Stated Complaint: RIGHT FOOT LACERATION KENNY NAIL Time Seen by Provider: 02/05/20 18:51 Source of Information: Reports: Patient History Limitations: Reports: No Limitations - History of Present Illness INITIAL COMMENTS - FREE TEXT/NARRATIVE: HISTORY AND PHYSICAL: History of present illness: Patient is a 24-year-old female who presents to the emergency room with complaints of a puncture wound to the bottom of her right foot after stepping on a nail. She states she did clean the area thoroughly but was concerned that she may need antibiotics and her tetanus updated. She states the nail was fairly clean and denies any concern of foreign body within the foot. Last tetanus was updated in 2011 she believes. Patient denies any fever, chills, headache, change in vision, syncope or near syncope. Denies any chest pain, neck or back pain, shortness of breath or cough. Denies any GI or symptoms. Review of systems: As per history of present illness and below otherwise all systems reviewed and negative. Past medical history: As per history of present illness and as reviewed below otherwise noncon tributory. Surgical history: As per history of present illness and as reviewed below otherwise noncontributory. Social history: See social history for further information Family history: As per history of present illness and as reviewed below otherwise noncontributory. Physical exam: General: Well-developed and well-nourished 24-year-old female. Alert and oriented. Nontoxic-appearing and in no acute distress. Vital signs are stable and have been reviewed by me. HEENT: Atraumatic, normocephalic, pupils equal and reactive bilaterally, negative for conjunctival pallor or scleral icterus, mucous membranes moist, trachea midline. No drooling or trismus noted. No meningeal signs. No hot potato voice noted. Lungs: Clear to auscultation, breath sounds equal bilaterally. Heart: S1S2, regular rate and rhythm without overt murmur Abdomen: Soft, nondistended, nontender. Skin: Puncture site noted to the bottom of her right foot. Otherwise remaining skin is intact, warm, dry. No lesions or rashes noted. Extremities: See skin for details, moves all extremities per self without difficulty or deficits, negative for cords or calf pain. Neurovascular unremarkable. Neuro: Awake, alert, oriented. Cranial nerves II through XII unremarkable. Cerebellum unremarkable. Motor and sensory unremarkable throughout. Exam nonfocal. Notes: Requested to do an x-ray to assess for foreign body, patient declines. Risks versus benefits were reviewed and discussed and she assumes responsibility for this. Will update her tetanus, wound care provided, bacitracin nonstick dressing applied. Signs and symptoms that would prompt her to return to the emergency room were reviewed and discussed. Follow-up, medication and supportive care measures were reviewed and discussed. Voices understanding and is agreeable to plan of care. Denies any further questions or concerns at this time. Diagnostics: Declines Therapeutics: Wound care, bacitracin, tetanus Prescription: Keflex Impression: Puncture wound Plan: 1. Keep the area clean and dry. Wash gently with mild soap and water twice daily. Continue to monitor for signs of infection. May use bacitracin ointment over the next 1-2 days. 2. Take antibiotic as directed. Tylenol and/or ibuprofen as needed for pain management. 3. Please follow-up with your primary care provider in the next 1-2 days. Return to the ED as needed and as discussed. Definitive disposition and diagnosis as appropriate pending reevaluation and review of above. 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 ED EXAM, SKIN/RASH Exam: See Below (See dictation) Course - Vital Signs Last Recorded V/S: Last Vital Signs Temp 97.6 F 02/05/20 19:16 Pulse 76 02/05/20 19:16 Resp 14 02/05/20 19:16 BP 125/66 02/05/20 19:16 Pulse Ox 99 02/05/20 19:16 - Orders/Labs/Meds Orders: Active Orders 24 hr Category Date Time Status Communication Order [RC] STAT Care 02/05/20 19:01 Active Vaccines to be Administered [RC] PER UNIT ROUTINE Care 02/05/20 19:01 Active Meds: Medications Discontinued Medications Generic Name Dose Route Start Last Admin Trade Name More PRN Reason Stop Dose Admin Bacitracin 1 dose 02/05/20 19:01 Bacitracin Oint 1 Gm TOP 02/05/20 19:02 ONETIME ONE Diphtheria/Tetanus/Acell Pertussis 0.5 ml 02/05/20 19:01 Adacel IM 02/05/20 19:02 .ONCE ONE Departure - Departure Time of Disposition: 19:41 Disposition: Home, Self-Care 01 Clinical Impression: Puncture wound - Discharge Information Instructions: Puncture Wound, [id number] Referrals: PCP,None [Primary Care Provider] - Forms: ED Department Discharge Additional Instructions: The following information is given to patients seen in the emergency department who are being discharged to home. This information is to outline your options for follow-up care. We provide all patients seen in our emergency department with a follow-up referral. The need for follow-up, as well as the timing and circumstances, are variable depending upon the specifics of your emergency department visit. If you don't have a primary care physician on staff, we will provide you with a referral. We always advise you to contact your personal physician following an emergency department visit to inform them of the circumstance of the visit and for follow-up with them and/or the need for any referrals to a consulting spec ialist. The emergency department will also refer you to a specialist when appropriate. This referral assures that you have the opportunity for follow-up care with a specialist. All of these measure are taken in an effort to provide you with optimal care, which includes your follow-up. Under all circumstances we always encourage you to contact your private physician who remains a resource for coordinating your care. When calling for follow-up care, please make the office aware that this follow-up is from your recent emergency room visit. If for any reason you are refused follow-up, please contact the [facility] Emergency Department at and asked to speak to the emergency department charge nurse. [facility] [address] [place] [address] [facility] [address] [place] [address] Thank you for choosing the [facility] emergency department in [place] for your medical needs today. It was a pleasure caring for you. You were seen in the emergency department for a puncture wound of the foot. Your tetanus has been up-dated. 1. Keep the area clean and dry. Wash gently with mild soap and water twice daily. Continue to monitor for signs of infection. May use bacitracin ointment over the next 1-2 days. 2. Take antibiotic as directed. Tylenol and/or ibuprofen as needed for pain management. 3. Please follow-up with your primary care provider in the next 1-2 days. Return to the ED as needed and as discussed. Sepsis Event Note (ED) - Focused Exam Vital Signs: Vital Signs Temp Pulse Resp BP Pulse Ox 02/05/20 19:16 97.6 F 76 14 125/66 99 - My Orders Last 24 Hours: My Active Orders 02/05/20 19:01 Communication Order [RC] STAT Vaccines to be Administered [RC] PER UNIT ROUTINE - Assessment/Plan Last 24 Hours: My Active Orders 02/05/20 19:01 Communication Order [RC] STAT Vaccines to be Administered [RC] PER UNIT ROUTINE
== END 2020-02-05 20:03 | disposition home or self-care (01) ==
LOC: MW.ED 18:40
DX: S91.331A Puncture wound without foreign body, right foot, initial encounter (principal); Z23 Encounter for immunization; Z91.018 Allergy to other foods; Z98.890 Other specified postprocedural states; W22.8XXA Striking against or struck by other objects, initial encounter
CPT/HCPCS: 90471; 90715; 99283; 99283-25

== ENCOUNTER 2020-08-03 10:29 | Emergency (ER) | payer BC ==
--- NOTE | 2020-08-03 11:21 | EDM.PDOC ---
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 She believes she is approximately 7 weeks , started having light vaginal bleeding. Patient denies any fever, chills, headache, change in vision, syncope or near syncope. Denies any chest pain, back pain, shortness of breath or cough. Denies any abdominal pain, nausea, vomiting, diarrhea, constipation or dysuria. Has not noted any blood in urine or stool. Patient has been eating and drinking appropriately. OBGYN: Dr Alcala at [facility] in [place], , P: 1 with her LMP: May 2020 Review of systems: As per history of present illness and below otherwise all systems reviewed and negative. Past medical history: As per history of present illness and as reviewed below otherwise noncontrib utory. Surgical history: As per history of present illness and as reviewed below otherwise noncontributory. Social history: See social history for further information Family history: As per history of present illness and as reviewed below otherwise noncontributory. Physical exam: General: Well developed and well nourished 24-year-old female. Alert and orientated x 3. Nontoxic in appearance and in no acute distress. Vital signs are stable and have been reviewed by me. Nursing notes were reviewed. HEENT: Atraumatic, normocephalic, pupils equal and reactive bilaterally, negative for conjunctival pallor or scleral icterus, mucous membranes moist, TMs normal bilaterally, throat clear, neck supple, nontender, trachea midline. No drooling or trismus noted. No meningeal signs. No hot potato voice noted. Lungs: Clear to auscultation, breath sounds equal bilaterally, chest nontender. Normal work of breathing, no accessory muscles used. Heart: S1S2, regular rate and rhythm without overt murmur Abdomen: Soft, nondistended, nontender. Negative for masses or hepatosplenomegaly. Negative for costovertebral tenderness. Pelvis: Stable nontender. Genitourinary: Done with consent and a manager pathology at bedside. Cervical os is closed and no blood is noted. Tolerated exam well. No cervical motion tenderness Skin: Intact, warm, dry. No lesions or rashes noted. Hematologic: No petechiae or purpra. Mucosa appropriate color and normal nail bed color and refill. Extremities: Atraumatic, moves all extremities per self without difficulty or deficits, negative for cords or calf pain. Neurovascular unremarkable. Neuro: Awake, alert, oriented. Cranial nerves II through XII unremarkable. Cerebellum unremarkable. Motor and sensory unremarkable throughout. Exam nonfocal. Psychiatric: Mood and affect are appropriate. Normal thought process. Answering questions appropriately. Notes: A positive blood type. Quantitative hCG is 6431.0 ultrasound shows an intrauterine gestational sac with yolk sac but no pole or cardiac activity. Gestational age of 5 weeks and 1 day. No complication evident. Patient reports she does have an appointment with Dr. Alcala on Wednesday and requests to have the repeat quant done with them versus me writing a outpatient lab order. I have talked with the patient about today's findings, in addition to providing specific details for plan of care. Reassessment at the time of disposition demonstrates that the patient is in no acute distress. The patient is stable for discharge, counseling was provided and we discussed in great detail signs and symptoms that would prompt them to return to the Emergency Department. Medication, follow up and supportive care measures were reviewed and discussed. Voices understanding and is agreeable to plan of care. Denies any further questions or concerns at this time. Diagnostics: CBC, CMP, Quant HCG, AB/RH, OB transvaginal US Therapeutics: None Prescription: None Impression: Threatened Miscarriage Plan: 1. Your ultrasound shows you are 5 weeks and 1 day. We need to monitor your quant HCG to make sure your numbers are rising. Please start and/or continue to take your vitamin with folic acid once daily. 2. Pelvic rest until cleared by your OBGYN (no tampons, sex, etc...) 3. Tylenol as needed for pain management. 4. Follow up with your AGING ROOM OPERATOR in the next 1-2 days. Return to the ED as needed and as discussed. Definitive disposition and diagnosis as appropriate pending reevaluation and review of above. patient denies pain Pain Score (Numeric/FACES): 0 - Related Data Allergies Allergy/AdvReac Type Severity Reaction Status Date / Time gluten Allergy Rash Verified 02/05/20 19:18 almonds Allergy Rash Uncoded 02/05/20 19:18 cherries Allergy Rash Uncoded 02/05/20 19:18 nuts Allergy Rash Uncoded 02/05/20 19:18 peaches Allergy Rash Uncoded 02/05/20 19:18 strawberries Allergy Rash Uncoded 02/05/20 19:18 Home Meds: Home Meds . 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 ED EXAM - Physical Exam Exam: See Below (See dictation) Course - Vital Signs Last Recorded V/S: Last Vital Signs Temp 97.1 F 08/03/20 11:08 Pulse 93 08/03/20 11:08 Resp 18 08/03/20 11:08 BP 122/75 08/03/20 11:08 Pulse Ox 100 08/03/20 11:08 - Orders/Labs/Meds Labs: Laboratory Tests 08/03/20 08/03/20 08/03/20 Range/Units 11:09 11:20 11:20 WBC 11.08 H (4.0-11.0) K/uL RBC 4.57 (4.30-5.90) M/uL Hgb 12.5 (12.0-16.0) g/dL Hct 38.9 (36.0-46.0) % MCV 85.1 (80.0-98.0) fL MCH 27.4 (27.0-32.0) pg MCHC 32.1 (31.0-37.0) g/dL RDW Std Deviation 43.5 (28.0-62.0) fl RDW Coeff of Berta 14 (11.0-15.0) % Plt Count 426 H (150-400) K/uL MPV 10.20 (7.40-12.00) fL Neut % (Auto) 73.9 (48.0-80.0) % Lymph % (Auto) 17.0 (16.0-40.0) % [place] % (Auto) 8.3 (0.0-15.0) % Eos % (Auto) 0.6 (0.0-7.0) % Baso % (Auto) 0.2 (0.0-1.5) % Neut # (Auto) 8.2 H (1.4-5.7) K/uL Lymph # (Auto) 1.9 (0.6-2.4) K/uL [place] # (Auto) 0.9 H (0.0-0.8) K/uL Eos # (Auto) 0.1 (0.0-0.7) K/uL Baso # (Auto) 0.0 (0.0-0.1) K/uL Nucleated RBC % 0.0 /100WBC Nucleated RBCs # 0 K/uL Sodium 138 (136-145) mmol/L Potassium 3.8 (3.5-5.1) mmol/L Chloride 102 (98-107) mmol/L Carbon Dioxide 25.3 (21.0-32.0) mmol/L BUN 10 (7.0-18.0) mg/dL Creatinine 0.8 (0.6-1.0) mg/dL Est Cr Clr Drug Dosing 102.39 mL/min Estimated GFR (MDRD) > 60.0 ml/min Glucose 100 (74-106) mg/dL Calcium 9.3 (8.5-10.1) mg/dL Total Bilirubin 0.5 (0.2-1.0) mg/dL AST 20 (15-37) IU/L ALT 29 (14-63) IU/L Alkaline Phosphatase 70 (46-116) U/L Total Protein 8.0 (6.4-8.2) g/dL Albumin 4.1 (3.4-5.0) g/dL Globulin 3.9 (2.6-4.0) g/dL Albumin/Globulin Ratio 1.1 (0.9-1.6) HCG, Quant mIU/mL Urine Color YELLOW Urine Appearance CLEAR Urine pH 6.0 (5.0-8.0) Ur Specific [place] <= 1.005 (1.001-1.035) Urine Protein NEGATIVE (NEGATIVE) mg/dL Urine Glucose (UA) NEGATIVE (NEGATIVE) mg/dL Urine Ketones NEGATIVE (NEGATIVE) mg/dL Urine Occult Blood SMALL H (NEGATIVE) Urine Nitrite NEGATIVE (NEGATIVE) Urine Bilirubin NEGATIVE (NEGATIVE) Urine Urobilinogen 0.2 (<2.0) EU/dL Ur Leukocyte Esterase NEGATIVE (NEGATIVE) Urine RBC 0-1 (0-2/HPF) Urine WBC 0-1 (0-5/HPF) Ur Epithelial Cells RARE (NONE-FEW) Urine Bacteria RARE (NEGATIVE) Blood Type 08/03/20 08/03/20 Range/Units 11:20 11:20 WBC (4.0-11.0) K/uL RBC (4.30-5.90) M/uL Hgb (12.0-16.0) g/dL Hct (36.0-46.0) % MCV (80.0-98.0) fL MCH (27.0-32.0) pg MCHC (31.0-37.0) g/dL RDW Std Deviation (28.0-62.0) fl RDW Coeff of Berta (11.0-15.0) % Plt Count (150-400) K/uL MPV (7.40-12.00) fL Neut % (Auto) (48.0-80.0) % Lymph % (Auto) (16.0-40.0) % [place] % (Auto) (0.0-15.0) % Eos % (Auto) (0.0-7.0) % Baso % (Auto) (0.0-1.5) % Neut # (Auto) (1.4-5.7) K/uL Lymph # (Auto) (0.6-2.4) K/uL [place] # (Auto) (0.0-0.8) K/uL Eos # (Auto) (0.0-0.7) K/uL Baso # (Auto) (0.0-0.1) K/uL Nucleated RBC % /100WBC Nucleated RBCs # K/uL Sodium (136-145) mmol/L Potassium (3.5-5.1) mmol/L Chloride (98-107) mmol/L Carbon Dioxide (21.0-32.0) mmol/L BUN (7.0-18.0) mg/dL Creatinine (0.6-1.0) mg/dL Est Cr Clr Drug Dosing mL/min Estimated GFR (MDRD) ml/min Glucose (74-106) mg/dL Calcium (8.5-10.1) mg/dL Total Bilirubin (0.2-1.0) mg/dL AST (15-37) IU/L ALT (14-63) IU/L Alkaline Phosphatase (46-116) U/L Total Protein (6.4-8.2) g/dL Albumin (3.4-5.0) g/dL Globulin (2.6-4.0) g/dL Albumin/Globulin Ratio (0.9-1.6) HCG, Quant 6431.0 mIU/mL Urine Color Urine Appearance Urine pH (5.0-8.0) Ur Specific [place] (1.001-1.035) Urine Protein (NEGATIVE) mg/dL Urine Glucose (UA) (NEGATIVE) mg/dL Urine Ketones (NEGATIVE) mg/dL Urine Occult Blood (NEGATIVE) Urine Nitrite (NEGATIVE) Urine Bilirubin (NEGATIVE) Urine Urobilinogen (<2.0) EU/dL Ur Leukocyte Esterase (NEGATIVE) Urine RBC (0-2/HPF) Urine WBC (0-5/HPF) Ur Epithelial Cells (NONE-FEW) Urine Bacteria (NEGATIVE) Blood Type A POSITIVE Departure - Departure Time of Disposition: 12:52 Disposition: Home, Self-Care 01 Clinical Impression: Threatened miscarriage in early - Discharge Information Instructions: Threatened Miscarriage, [id number] Referrals: PCP,Not In Area [Primary Care Provider] - Forms: ED Department Discharge Additional Instructions: The following information is given to patients seen in the emergency department who are being discharged to home. This information is to outline your options for follow-up care. We provide all patients seen in our emergency department with a follow-up referral. The need for follow-up, as well as the timing and circumstances, are variable depending upon the specifics of your emergency department visit. If you don't have a primary care physician on staff, we will provide you with a referral. We always advise you to contact your personal physician following an emergency department visit to inform them of the circumstance of the visit and for follow-up with them and/or the need for any referrals to a consulting specialist. The emergency department will also refer you to a specialist when appropriate. This referral assures that you have the opportunity for follow-up care with a specialist. All of these measure are taken in an effort to provide you with optimal care, which includes your follow-up. Under all circumstances we always encourage you to contact your private physician who remains a resource for coordinating your care. When calling for follow-up care, please make the office aware that this follow-up is from your recent emergency room visit. If for any reason you are refused follow-up, please contact the [facility] Emergency Department at and asked to speak to the emergency department charge nurse. [facility] [address] [place] [address] [facility] [address] [place] [address] Thank you for choosing the [facility] emergency department in [place] for your medical needs today. It was a pleasure caring for you. Today you were seen in the emergency department for vaginal bleeding in . 1. Your ultrasound shows you are 5 weeks and 1 day. We need to monitor your quant HCG to make sure your numbers are rising. Please start and/or continue to take your vitamin with folic acid once daily. 2. Pelvic rest until cleared by your OBGYN (no tampons, sex, etc...) 3. Tylenol as needed for pain management. 4. Follow up with your AGING ROOM OPERATOR in the next 1-2 days. Return to the ED as needed and as discussed. Sepsis Event Note (ED) - Evaluation Sepsis Screening Result: No Definite Risk - Focused Exam Vital Signs: Vital Signs Temp Pulse Resp BP Pulse Ox 08/03/20 11:08 97.1 F 93 18 122/75 100
[2020-08-03 11:48] LABS: BLOOD UREA NITROGEN,BUN 10 mg/dL (7.0-18.0); CARBON DIOXIDE,CO2 25.3 mmol/L (21.0-32.0); CHLORIDE,CL 102 mmol/L (98-107); GLUCOSE RANDOM 100 mg/dL (74-106); POTASSIUM,K 3.8 mmol/L (3.5-5.1); SODIUM,NA 138 mmol/L (136-145)
--- NOTE | 2020-08-03 12:47 | US ---
INDICATION: Vaginal bleeding in early . History of previous miscarriage. TECHNIQUE: Transvaginal scanning was performed to optimally evaluate the IUP and adnexa. Ovarian blood flow was evaluated with color-flow and pulsed Doppler. COMPARISON: None. FINDINGS: There is an intrauterine gestational sac with a yolk sac. No pole or cardiac activity is evident. Mean sac size is consistent with gestational age of 5 weeks 1 day. The placenta is not yet formed. No subchorionic hemorrhage is evident. The ovaries are normal is size and shape. The right ovary measures 2.3 x 2.2 x 1.5 cm and the left 2.6 x 1.7 x 1.6 cm. Ovarian blood flow is demonstrated with color-flow and pulsed Doppler. No adnexal mass or free fluid is apparent. IMPRESSION: 1. Intrauterine gestational sac with yolk sac but no pole or cardiac activity. Mean sac size consistent with gestational age of 5 weeks 1 day. 2. No complication evident. Dictated by Graham Castro MD @ Aug 03 2020 12:41PM Signed by Dr. Graham Castro @ Aug 03 2020 12:47PM
== END 2020-08-03 12:59 | disposition home or self-care (01) ==
LOC: MW.ED 10:29
DX: O20.0 Threatened abortion (principal); Z91.048 Other nonmedicinal substance allergy status; Z91.018 Allergy to other foods; Z3A.01 Less than 8 weeks gestation of pregnancy
CPT/HCPCS: 36415; 76817; 76817-26; 80053; 81001; 84702; 85025; 86900; 86901; 99283; 99284-25

== ENCOUNTER 2024-07-07 09:06 | Emergency (ER) | payer BC ==
[2024-07-07] MEDS: Sodium Chloride 0.9% 500 ML IV SCH (09:47)
[2024-07-07 09:55] LABS: HEMATOCRIT 38.5 % (37.0-47.0); MEAN CORPUSCULAR HEMOGLOBIN 27.6 pg (28.0-32.0); MEAN CORPUSCULAR HGB CONC 33.8 g/dL (32.0-36.0); MEAN CORPUSCULAR VOLUME 81.7 fL (83.0-99.0); MEAN PLATELET VOLUME 10.4 fL (9.4-12.3); PLATELET COUNT,PLT 413 K/uL (150-400); RED BLOOD CELL COUNT 4.71 M/uL (4.10-5.30); WHITE BLOOD CELL COUNT,WBC 12.35 K/uL (3.9-11.3)
[2024-07-07 10:28] LABS: A/G RATIO 0.9 (0.9-1.6); ALBUMIN 3.7 g/dL (3.4-5.0); BILIRUBIN TOTAL 0.5 mg/dL (0.2-1.0); CALCIUM 9.3 mg/dL (8.5-10.1); CARBON DIOXIDE,CO2 25.8 mmol/L (21.0-32.0); CREATININE 1.1 mg/dL (0.6-1.0); EST CRCL DRUG DOSING (CG) 74.7 mL/min; POTASSIUM,K 3.9 mmol/L (3.5-5.1); PROTEIN TOTAL,TP 7.8 g/dL (6.4-8.2); TSH ULTRASENSITIVE 1.29 uIU/mL (0.36-3.74)
== END 2024-07-07 11:32 | disposition home or self-care (01) ==
LOC: MW.ED 09:06
DX: R00.2 Palpitations (principal); R00.0 Tachycardia, unspecified; Z91.018 Allergy to other foods
CPT/HCPCS: 36415; 80053; 84443; 85027; 93005; 96360; 99285; J7040